=== PATIENT | female | born 1945 | race Caucasian/White ===

== ENCOUNTER 2017-06-03 16:11 | Outpatient (CLI) | payer MEDICARE | END 2017-06-03 16:12 | disposition home or self-care (01) | LOC: BICRAD 16:11 | PROVIDERS: ATTEND Internal Medicine | DX: J40 Bronchitis, not specified as acute or chronic (principal) | CPT/HCPCS: 71046 ==

== ENCOUNTER 2017-06-15 16:20 | Emergency (ER) | payer MEDICARE ==
[2017-06-15 17:34] LABS: #Basophils 0.1 thou/uL (0.0-0.2); #Eosinphils 0.3 thou/uL (0.0-0.7); #Lymphocytes 2.9 thou/uL (1.20-3.40); #Monocytes 1.5 thou/uL (0.11-0.59); #Neutrophils 12.8 thou/uL (1.40-6.50); %Basophils 0.7 % (0.0-1.0); %Eosinophils 1.5 % (0.0-10.0); %Lymphocytes 16.3 % (21.0-51.0); %Monocytes 8.5 % (0.0-10.0); Mean Corpuscular HGB CONC 31.3 g/dL (32.0-36.0); Mean Corpuscular Hemoglobin 30.4 pg (27.0-31.0); Mean Corpuscular Volume 97.1 fl (81.0-99.0); Mean Platelet Volume 7.6 fL (7.4-10.4); Platelet Count 245 thou/uL (130-400); RBC Distribution Width 12.4 % (11.5-14.5); Red Blood Cell (RBC) Count 4.94 mill/uL (4.20-5.40); White Blood Cell (WBC) Count 17.5 thou/uL (4.8-10.8)
[2017-06-15 17:49] LABS: ALT (SGPT) 12 U/L (8-55); AST (SGOT) 16 U/L (5-34); Albumin 4.1 g/dL (3.4-4.8); Alkaline Phosphatase 48 U/L (40-150); Anion Gap 12 mmol/L (10-20); BUN (Urea Nitrogen) 15 mg/dL (9.8-20.1); Bilirubin, Total 0.7 mg/dL (0.2-1.2); Calc. Creatinine Clearance 0 mL/min (70-130); Calcium 9.3 mg/dL (7.8-10.44); Carbon Dioxide 30 mmol/L (23-31); Chloride 98 mmol/L (98-107); Estimated GFR-MDRD 72; Glucose 130 mg/dL (80-115); Protein, Total 7.1 g/dL (6.0-8.3); Sodium 137 mmol/L (136-145)
[2017-06-15 17:52] LABS: Troponin I Less than 0.010 ng/mL (< 0.028)
--- NOTE | 2017-06-15 17:52 | CT ---
EXAM: NONCONTRAST HEAD CT 06/15/17 HISTORY: Trauma. Patient was getting up and had loss of consciousness. Syncopal episode. COMPARISON: None. TECHNIQUE: Noncontrast head CT is performed from skull base to skull vertex. FINDINGS: No parenchymal hemorrhage. No extra-axial hematoma. No midline shift. Basilar cisterns are patent. Br ain volume, age appropriate. Cortical nicolas-white matter differentiation is preserved. Ventricles and sulci are patent and symmetric. The calvarium is intact. Adequate aeration of the sinuses and mastoid air cells. There is a posterior left scalp laceration and hematoma. IMPRESSION: 1. No intracranial posttraumatic sequela. 2. Left scalp injury with laceration and hematoma. POS: [facility]
[2017-06-15 17:54] LABS: Potassium 2.9 mmol/L (3.5-5.1)
[2017-06-15 17:55] LABS: CKMB 9.8 ng/mL (0-6.6)
== END 2017-06-15 18:05 | disposition home or self-care (01) ==
LOC: ERS 16:20
DX: S01.01XA Laceration without foreign body of scalp, initial encounter (principal); R55 Syncope and collapse; E87.6 Hypokalemia; E78.5 Hyperlipidemia, unspecified; I10 Essential (primary) hypertension; Z79.899 Other long term (current) drug therapy; Z79.82 Long term (current) use of aspirin; W01.198A Fall on same level from slipping, tripping and stumbling with subsequent striking against other object, initial encounter; Y92.89 Other specified places as the place of occurrence of the external cause
CPT/HCPCS: 12002; 70450; 80053; 82553; 84484; 85025; 93005

== ENCOUNTER 2018-01-18 15:48 | Inpatient (IN) | payer MEDICARE ==
[2018-01-18 16:29] VITALS: BMI 27.0
[2018-01-18] MEDS ORDERED: Diltiazem 125 MG in Sodium Chloride 0.9% 100 ML IVPB SCH (20:00)
[2018-01-18] MEDS ORDERED: Enoxaparin Sodium 80 MG/0.8 ML SYRINGE SC SCH (20:00)
[2018-01-18] MEDS: Atorvastatin Calcium 10 MG TAB PO SCH (20:31)
--- NOTE | 2018-01-18 21:37 | RAD ---
AP VIEW CHEST: 01/18/18 HISTORY: Shortness of breath. Atrial fibrillation. AP view chest is obtained on 01/18/18. Comparison made to previous exam of 03/09/13. AP view chest demonstrates mild pulmonary vascular congestion. There is some blunting of the right and left costophrenic angles compatible with small bilateral pleu ral effusions. No evidence of pneumonia seen. IMPRESSION: Pulmonary vascular congestion and small bilateral pleural effusions. POS: [facility]
--- NOTE | 2018-01-19 04:10 | HP ---
CHIEF COMPLAINT: Dyspnea on exertion. HISTORY OF PRESENT ILLNESS: This patient is a 72-year-old female, who is generally in good health un til she was recently diagnosed with Graves' disease by her PCP, Dr. Collado. She has been referred to a specialist in [place], but that is a couple of weeks away. The patient stated that Wednesday she we nt to the [employer] football game and when trying to ascend the stairs at the stadium she became very s hort of breath. Since that time, she has persistently been short of breath with exertion. She denie s any chest pains, palpitations or shortness of breath at rest and it is really only with exertion. She presented to her PCP's office with those symptoms today. Dr. Collado performed an EKG and found he r to be in atrial fibrillation, subsequently called for direct admission and spoke with Dr. Hussein. Currently, the patient feels at her baseline. REVIEW OF SYSTEMS: Only notable for the fact that she tends to trend toward constipation. Otherwise , 10-system review is negative. PAST MEDICAL HISTORY: Hyperlipidemia, hypertension, recently diagnosed Graves' disease. She did hav e an elevated JULIA in the past, but no other diagnosis was made. PAST SURGICAL HISTORY: Cholecystectomy, tonsillectomy, bilateral tubal ligation. SOCIAL HISTORY: The patient typically has about one glass of wine per day. She is a nonsmoker, nond rug user. She is . Her would be her surrogate decision maker and she is F[employer]. FAMILY HISTORY: Both parents in their 90s. She believes her father likely had some heart issue s, but was not formally diagnosed. CURRENT MEDICATIONS: Multivitamin ICaps 1 q. day, Lipitor 10 mg at bedtime, aspirin 325 q. day, poly ethylene glycol 119 grams p.o. q. day. ALLERGIES: None. PHYSICAL EXAMINATION: VITAL SIGNS: Pulse is ranging from 80s-170s, temperature is 97.7, pulse 74, respirations 16, O2 sat 98% on room air, blood pressure is 152/72. GENERAL APPEARANCE: Age appropriate female. She is awake, alert, oriented, pleasant, and cooperativ e. She is in no distress. HEENT: PERRL. No OP lesions. NECK: Supple and symmetric. CARDIOVASCULAR: Heart is irregularly irregular with tachycardia. LUNGS: Clear to auscultation bilaterally with good chest wall expansion and air exchange. No wheeze s or rales. ABDOMEN: Soft, nontender, nondistended, positive bowel sounds. No masses, no organomegaly. EXTREMITIES: Warm and dry with no cyanosis, clubbing or edema. LABORATORY DATA: No labs presently. The patient reports that all of her other lab work performed by Dr. Collado was normal other than her thyroid studies. IMPRESSION AND PLAN: 1. New onset atrial fibrillation. Currently, the patient has rapid ventricular response with variab le rate, currently 101-150, it was as low as 80s, seem to have increased when she tried to get up and go to the bathroom. Keeping her on telemetry and observation, going to go ahead and give her a dose of IV Cardizem bolus at 20 mg and start a drip at 5 an hour to get some better rate control. Order some labs for the morning, get echocardiogram and consult Cardiology. Concern that her Graves' disea se and some degree of hyperthyroidism might be driving the atrial fibrillation and the tachycardia. I will give her a single dose of therapeutic Lovenox tonight. We will determine whether she needs to be on continued anticoagulation in the morning, it is not impossible. Cardiology might want to cons ider a PALOMA and possible cardioversion given the relatively new onset of the symptoms that may be miti gated by the fact that she may have some underlying hyperthyroidism. 2. History of hyperlipidemia. Continue with her atorvastatin. 3. Graves' disease. The patient was recently diagnosed. We will go ahead and order a thyroid panel as from the morning, so we can only see what levels are dealing with.
[2018-01-19 04:41] LABS: #Basophils 0.1 thou/uL (0.0-0.2); #Eosinphils 0.2 thou/uL (0.0-0.7); #Lymphocytes 1.7 thou/uL (1.20-3.40); #Monocytes 0.9 thou/uL (0.11-0.59); #Neutrophils 5.8 thou/uL (1.40-6.50); %Basophils 0.9 % (0.0-1.0); %Eosinophils 1.8 % (0.0-10.0); %Lymphocytes 19.7 % (21.0-51.0); %Monocytes 10.8 % (0.0-10.0); %Neutrophils 66.8 % (42.0-75.0); Mean Corpuscular Hemoglobin 29.5 pg (27.0-31.0); Mean Corpuscular Volume 92.2 fL (78.0-98.0); Mean Platelet Volume 9.9 fL (7.4-10.4); Platelet Count 129 thou/uL (130-400); RBC Distribution Width 11.8 % (11.5-14.5); White Blood Cell (WBC) Count 8.7 thou/uL (4.8-10.8)
[2018-01-19 05:16] LABS: Anion Gap 13 mmol/L (10-20); BUN (Urea Nitrogen) 11 mg/dL (9.8-20.1); Calc. Creatinine Clearance 111 mL/min (70-130); Calcium 9.1 mg/dL (7.8-10.44); Carbon Dioxide 24 mmol/L (23-31); Chloride 108 mmol/L (98-107); Estimated GFR-MDRD Greater than 90; Glucose 125 mg/dL (83-110); Potassium 3.3 mmol/L (3.5-5.1); Sodium 142 mmol/L (136-145)
[2018-01-19] MEDS: Vit A,C & E/Lutein/Minerals Tablet PO SCH (08:03)
[2018-01-19] MEDS ORDERED: Polyethylene Glycol 3350 17 GM Packet PO SCH (09:00)
[2018-01-19] MEDS ORDERED: Aspirin 325 mg Enteric Coated Tablet PO SCH (09:00)
[2018-01-19] MEDS: Meloxicam 7.5 MG TAB PO SCH (09:57)
[2018-01-19] MEDS: Polyethylene Glycol 3350 17 GM Packet PO SCH (09:57)
[2018-01-19] MEDS ORDERED: Potassium Chloride 20 MEQ TAB PO SCH (10:15)
--- NOTE | 2018-01-19 10:33 | PDOC.PN ---
- Subjective Encounter Start Date: 01/19/18 Encounter Start Time: 10:31 Doing well. Feels a little better. - Objective Resuscitation Status: Resuscitation Status FULL:Full Resuscitation Vital Signs & Weight: Vital Signs (12 hours) Temp Pulse Resp BP Pulse Ox 01/19/18 07:52 98.6 F 93 16 178/98 H 95 01/19/18 04:00 98.0 F 93 18 171/87 H 93 L 01/19/18 00:00 98.8 F 102 H 19 113/63 93 L Weight Weight 183 lb Result Diagrams: 01/19/18 03:22 01/19/18 03:22 Phys Exam - Physical Examination Constitutional: NAD Respiratory: no wheezing, no rales, no rhonchi, clear to auscultation bilateral Cardiovascular: no significant murmur, no rub, irregular Gastrointestinal: soft, non-tender, no distention, positive bowel sounds Musculoskeletal: no edema Psychiatric: normal affect, A&O x 3 Dx/Plan (1) Atrial fibrillation with rapid ventricular response Code(s): I48.91 - UNSPECIFIED ATRIAL FIBRILLATION Status: Acute Comment: On Cardizem gtt. Rate much improved. Cards consult pending. Echo pending. Had on dose of Lovenox last night. Slightly low platelets. Await labs from [facility] before additional doses. (2) Graves disease Code(s): E05.00 - THYROTOXICOSIS W DIFFUSE GOITER W/O THYROTOXIC CRISIS Status : Acute Comment: Getting lab results from [facility]. (3) Hyperlipidemia Code(s): E78.5 - HYPERLIPIDEMIA, UNSPECIFIED Status: Acute Comment: Continue lipitor. - Plan * above.
[2018-01-19] MEDS: Diltiazem 125 MG in Sodium Chloride 0.9% 100 ML IVPB SCH ×2 (11:53→23:48)
[2018-01-19] MEDS ORDERED: Metoprolol Tartrate 25 MG TAB PO SCH (14:45)
[2018-01-19] MEDS ORDERED: Rivaroxaban 15 MG TAB PO SCH (14:45)
[2018-01-19] MEDS: Acetaminophen 325 MG TAB PO PRN (17:26)
[2018-01-19] MEDS: Metoprolol Tartrate 50 MG TAB PO SCH (20:50)
[2018-01-19] MEDS: Atorvastatin Calcium 10 MG TAB PO SCH (20:50)
--- NOTE | 2018-01-19 22:08 | CON ---
DATE OF CONSULTATION: 01/19/2018 HISTORY OF PRESENT ILLNESS: Corrie Arthur is a 72-year-old white female that I have known socially for many years. She has never had any previous cardiac problems. She recently has been having problems with increasing fatigue and tiredness and on 12/20/2017, had a TSH by Dr. Collado, that was less than 0.010, whereas before it apparently was normal. She had a free T3 of 12.0, free T4 of 3.83. Thyroid peroxidase and thyroglobulin antibody were both extremely elevated. An appointment was made to have her seen by an dough raiser in [place], which apparently is not until the of this month. Approximately 1 week ago, her began to notice that at night she would seem to be breathing very hard. On Wednesday while at the football game, she became increasingly dyspneic walking up and down the steps. She has never had this before. Ultimately, she went to see Dr. Collado yesterday on 01/18/2018. She was found to be in atrial fibrillation with fast ventricular response and was sent to the emergency room to be admitted. She does complain of exertional dyspnea, but denies any chest, arm, neck, or jaw discomfort. She denies any palpitations. She has never had arrhythmia problems or cardiac problems in the past. She has noticed some heat as well as cold intolerance, but denies any tremor or diarrhea. PAST MEDICAL HISTORY: Hypercholesterolemia, hypertension. Recently diagnosed with Graves' disease. She also has history of an elevated JULIA. OPERATIONS: Cholecystectomy, tonsillectomy, bilateral tubal ligation. MEDICATIONS: Aspirin 325 daily, atorvastatin 10 at bedtime, Mobic 7.5 daily, Icaps, Protonix 40 b.i.d., MiraLax 17 grams daily. ALLERGIES: None. SOCIAL HISTORY: She does not smoke. She drinks a glass of wine per day. FAMILY HISTORY: Father had bypass surgery. REVIEW OF SYSTEMS: Twelve-point review of systems is otherwise unremarkable. PHYSICAL EXAMINATION: VITAL SIGNS: blood pressure 178/98, pulse of 100 and irregularly irregular. HEENT: PERRL. NECK: Supple. CHEST: Clear. CARDIAC: S1, S2 normal, without any S3, S4 or murmurs. Carotid upstrokes normal, without bruits. ABDOMEN: Normal bowel sounds, without tenderness, organomegaly. EXTREMITIES: Revealed no clubbing, cyanosis or edema. NEUROLOGIC: Grossly intact. SKIN: Warm and dry. LABORATORY DATA: I do not see an EKG on the chart. At times, her heart rate is up to 190 per minute on telemetry. Thyroid blood test as noted above. CBC is normal with hemoglobin of 13.0, hematocrit of 40.5. Sodium 142, potassium is 3.3, chloride 108, carbon dioxide 24, BUN 11, creatinine 0.61. IMPRESSION: 1. New-onset atrial fibrillation, probably 6 or 7 days ago. This certainly appears to be due to her hyperthyroidism. 2. Hyperthyroidism, probable Graves' disease. 3. Hyperlipidemia. 4. History of hypertension. PLAN: The patient will be started on anticoagulation with Xarelto. She does not have known coronary artery disease and so her aspirin will be discontinued. She will be started on p.o. metoprolol for better rate control with the atrial fibrillation. Consideration may also need to be given to addition of methimazole. Eventually, consideration needs to be given to restoring normal sinus rhythm; however, until her hyperthyroidism is adequately treated, she has very high chance of recurrence, and I will wait to address that once her hyperthyroidism has been corrected in the future. ALVARO
[2018-01-20] MEDS: Rivaroxaban 10 MG TAB PO SCH (08:30)
[2018-01-20] MEDS: Meloxicam 7.5 MG TAB PO SCH (08:30)
[2018-01-20] MEDS: Polyethylene Glycol 3350 17 GM Packet PO SCH (08:31)
[2018-01-20] MEDS: Metoprolol Tartrate 50 MG TAB PO SCH ×2 (08:31→21:34)
[2018-01-20] MEDS: Vit A,C & E/Lutein/Minerals Tablet PO SCH (08:31)
[2018-01-20] MEDS ORDERED: Diltiazem 125 MG in Sodium Chloride 0.9% 100 ML IVPB SCH (09:23)
[2018-01-20] MEDS ORDERED: Metoprolol Tartrate 25 MG TAB PO SCH (11:00)
[2018-01-20] MEDS: Acetaminophen 325 MG TAB PO PRN (11:45)
[2018-01-20] MEDS: Atorvastatin Calcium 10 MG TAB PO SCH (21:37)
[2018-01-21 06:10] LABS: Anion Gap 12 mmol/L (10-20); BUN (Urea Nitrogen) 13 mg/dL (9.8-20.1); Calc. Creatinine Clearance 107 mL/min (70-130); Calcium 8.9 mg/dL (7.8-10.44); Carbon Dioxide 21 mmol/L (23-31); Cardiac Risk 3.8 (Less than 4.5); Chloride 108 mmol/L (98-107); Cholesterol 115 mg/dl (< 200 Desired); Estimated GFR-MDRD Greater than 90; Glucose 118 mg/dL (83-110); HDL Cholesterol 30 mg/dL (>60 Neg Risk); LDL Cholesterol, Calculated 74 mg/dL; Potassium 3.9 mmol/L (3.5-5.1); Sodium 137 mmol/L (136-145); Triglycerides 55 mg/dL (Less than 150)
[2018-01-21 08:00] VITALS: BP 133/77; TEMP 97.7
[2018-01-21] MEDS: Polyethylene Glycol 3350 17 GM Packet PO SCH (08:20)
[2018-01-21] MEDS: Vit A,C & E/Lutein/Minerals Tablet PO SCH (08:21)
[2018-01-21] MEDS: Rivaroxaban 10 MG TAB PO SCH (08:21)
[2018-01-21] MEDS: Meloxicam 7.5 MG TAB PO SCH (08:21)
[2018-01-21] MEDS: Metoprolol Tartrate 50 MG TAB PO SCH (08:22)
[2018-01-21] MEDS ORDERED: Non-Formulary Item 1 EACH (Irbesartan [Irbesartan] 300 MG) PO SCH (09:00)
[2018-01-21] MEDS ORDERED: Metoprolol Tartrate 50 MG TAB PO SCH ×2 (09:00→21:00)
--- NOTE | 2018-01-21 09:45 | PRG ---
DATE OF SERVICE: 01/21/2018 SUBJECTIVE: Ms. Arthur is doing well, no complaints. No shortness of breath. No tightness. OBJECTIVE: VITAL SIGNS: Blood pressure 133/77, pulse is variable, mostly between 90-110. LUNGS: Clear. CARDIAC: Irregular, irregular. Heart rates are rapid even at rest. ABDOMEN: Soft, nontender. EXTREMITIES: No edema. ASSESSMENT: 1. Hyperthyroidism. 2. Atrial fibrillation, rates still at high even at rest. PLAN: 1. Increase metoprolol to 100 mg twice a day. 2. Stop meloxicam. 3. She is on Xarelto 20 mg a day. 4. She will follow up with Dr. Rizvi in 2 weeks. 5. She is also on irbesartan. Okay to be released home at this time. I would recommend reducing th e irbesartan to 150 mg a day since she is now on the beta blockers at higher dose.
[2018-01-21] MEDS ORDERED: Metoprolol Tartrate 25 MG TAB PO SCH (11:00)
--- NOTE | 2018-01-22 10:32 | EKG ---
Test Reason : Blood Pressure : / mmHG Vent. Rate : 102 BPM Atrial Rate : 107 BPM P-R Int : 000 ms QRS Dur : 088 ms QT Int : 436 ms P-R-T Axes : 000 079 077 degrees QTc Int : 568 ms Atrial fibrillation Abnormal ECG QT has lengthened Confirmed by DR. Khadijah SAUCEDA ([id number]) on 01/22/2018 10:32:17 AM Referred By: EDIL Confirmed By:DR. Khadijah SAUCEDA
--- NOTE | 2018-01-22 10:33 | EKG ---
Test Reason : REPEAT Blood Pressure : / mmHG Vent. Rate : 088 BPM Atrial Rate : 084 BPM P-R Int : 000 ms QRS Dur : 084 ms QT Int : 426 ms P-R-T Axes : 000 093 050 degrees QTc Int : 515 ms Atrial fibrillation with premature ventricular or aberrantly conducted complexes Rightward axis Prolonged QT Abnormal ECG Confirmed by DR. Khadijah SAUCEDA ([id number]) on 01/22/2018 10:32:39 AM Referred By: EDIL Confirmed By:DR. Khadijah SAUCEDA
--- NOTE | 2018-01-23 22:23 | DIS ---
DATE OF ADMISSION: 01/18/2018 DATE OF DISCHARGE: 01/21/2018 DISCHARGE DIAGNOSES: 1. Atrial fibrillation with rapid ventricular response. 2. Graves' disease. 3. Hyperlipidemia. 4. Hypertension. HISTORY: This patient is a 72-year-old female who presented to the hospital as a direct admission fr om Dr. Berhane Collado's office. The patient had recently been diagnosed with Graves' disease. She farris d appointment with rim turning machine operator in [place] later in the month. The patient reported some increasi ng dyspnea on exertion and shortness of breath. She presented to Dr. Collado's office. He performed a n EKG, which confirmed atrial fibrillation with rapid ventricular response. Patient was subsequently directly admitted. HOSPITAL COURSE: The patient was admitted to telemetry. Her initial telemetry did confirm atrial fi brillation with rapid ventricular response. Her labs were only notable for a potassium of 3.3, other heller were generally unremarkable. She had IV Cardizem drip initiated after a bolus to get better con trol of her rate. The patient did have some improvement through the night and was seen by Cardiology the following day. At that time, the patient was started on oral beta apoorva and long-acting antic oagulation with Xarelto. The following day, the patient's heart rate was still slightly elevated. S he had increase in the dosage of her beta apoorva and was felt to be stable for discharge the follow day. PHYSICAL EXAMINATION: VITAL SIGNS: On date of discharge, temperature is 97.7, pulse 74, respirations 16, O2 sat was 94%, b lood pressure was 133/77. HEART: Regular but good rate. LUNGS: Clear bilaterally. ABDOMEN: Benign. EXTREMITIES: Warm and dry. DISCHARGE INSTRUCTIONS: The patient is discharged to home with a heart-healthy diet. Her activity [employer] is as tolerated. DISCHARGE MEDICATIONS: She will be on irbesartan 150 mg every day for elevated blood pressure, metop rolol 100 mg b.i.d., Xarelto 20 mg every day. She will continue with her usual dose of Lipitor 10 mg at bedtime, MiraLax 17 grams daily, multivitamin 1 p.o. daily, pantoprazole 40 mg b.i.d. She is to follow up with Dr. Rizvi on 02/03 at 3:30 p.m. She should also follow up with Dr. Shira Collado. She can return to the emergency department should she have any problems prior to that time . Of note, the patient did have an echocardiogram while in the hospital, which revealed an ejection fraction of 50-55% with some severe tricuspid regurgitation, but no other valvular issues.
== END 2018-01-21 12:46 | disposition home or self-care (01) | DRG 310 ==
LOC: 2SE 15:48
PROVIDERS: ADMIT Internal Medicine Infectious Disease; ATTEND Internal Medicine Infectious Disease
DX: I48.91 Unspecified atrial fibrillation (principal); E05.00 Thyrotoxicosis with diffuse goiter without thyrotoxic crisis or storm; E78.5 Hyperlipidemia, unspecified; I10 Essential (primary) hypertension; Z79.899 Other long term (current) drug therapy; Z79.82 Long term (current) use of aspirin; Z79.1 Long term (current) use of non-steroidal anti-inflammatories (NSAID); E03.9 Hypothyroidism, unspecified
CPT/HCPCS: 36415; 71045; 80048; 80061; 85025; 93005; 93010; 93306; J1650; J7050

== ENCOUNTER 2018-07-01 07:23 | Outpatient (CLI) | payer MEDICARE ==
[2018-07-01 07:47] LABS: Estimated GFR-MDRD - POC Greater than 90
--- NOTE | 2018-07-01 08:32 | MRI ---
Exam: Brain MRI with and without contrast HISTORY: Memory disorder. Memory problems. COMPARISON: None FINDINGS: Gradient echo sequence: No hemorrhage Calvarium: Appropriate T1 marrow signal intensity Midline brain parenchyma: Unremarkable Cerebrum:No parenchymal mass, mass effect or midline shift. Brain volume, age-appropriate. Cortical g ray-white matter differentiation is preserved. T2 and FLAIR white matter hyperintensities likely due to chronic small vessel ischemic change. Ventricles: No evidence of hydrocephalus. Sinuses and mastoid air cells: Adequate aeration Diffusion: Central arterial flow is maintained. Absent restricted diffusion. Postcontrast images: No pathologic enhancement of the brain parenchyma. IMPRESSION: Absent restricted diffusion. No acute infarct. No pathologic enhancement the brain parenchyma. Brain volume, age-appropriate. Minimal chronic small vessel ischemic changes of the white matter.
== END 2018-07-01 07:24 | disposition home or self-care (01) ==
LOC: SCSMRI 07:23
PROVIDERS: ATTEND Psychiatry & Neurology Neurology
DX: R41.3 Other amnesia (principal); E55.9 Vitamin D deficiency, unspecified; E16.2 Hypoglycemia, unspecified; E46 Unspecified protein-calorie malnutrition
CPT/HCPCS: 70553; 82565

== ENCOUNTER → 2019-04-27 | Day surgery (SDC) | payer MEDICARE ==
--- NOTE | 2019-04-27 08:37 | MMO ---
EXAM: MAMMO Brst Bx Stereo left breast Left breast biopsy marker clip placement. PROVIDED CLINICAL HISTORY: Increased number of microcalcifications seen involving a cluster of microcalcifications in the upper outer left breast. Biopsy was recommended. COMPARISON: Mammograms on 04/21/2019. TECHNIQUE: The procedure including the risks and complications were explained to the patient, and informed conse nt was obtained. The patient was placed on the stereotactic guided breast biopsy table in the prone position. Calcifications in the upper outer left breast were localized utilizing stereotactic imaging . The skin and subcutaneous tissues were infiltrated with buffered 1% lidocaine with epinephrine for local anesthesia. A small skin incision was made. A 10-gauge biopsy needle was advanced into the left breast. Stereotactic images were performed demonstrating calcifications at the tip of the needle. The needle was then further advanced, and positioning was again confirmed with stereotactic i mages. A total of [id number] core needle biopsy specimens were obtained. A specimen mammogram was performed which demonstrated multiple microcalcifications within the specimen. As a result, a biopsy marker clip was deployed at site of biopsy. Stereotactic images were performed demonstrating deployment of t he biopsy marker clip. Hemostasis was achieved with direct pressure. A dry sterile dressing was placed. The patient tolerate d the procedure well and without immediate complication. Mammographic images of the left breast were then performed. IMPRESSION: 1. Grouping of microcalcifications in the upper outer left breast. 2. Technically successful stereotactic guided breast biopsy left breast microcalcifications. 3. Specimen mammogram demonstrates microcalcifications in the specimen. 4. Technically successful biopsy marker clip deployment at site of biopsy.
--- NOTE | 2019-04-27 08:39 | MMO ---
EXAM: MAMMO Surgial Specimen PROVIDED CLINICAL HISTORY: Microcalcifications upper left breast. Patient is post stereotactic guided breast biopsy. COMPARISON: Mammograms on 04/21/2019 and stereotactic guided breast biopsy obtained on this date. FINDINGS: Specimen mammogram demonstrates several core biopsy samples. Multiple microcalcifications are seen wi thin the provided specimen. IMPRESSION: Microcalcifications present in the provided specimen mammogram.
--- NOTE | 2019-04-27 08:47 | MMO ---
EXAM: MAMMO Unilat Diag DDI LT PROVIDED CLINICAL HISTORY: Grouping of microcalcifications upper outer left breast. Patient is post stereotactic guided biopsy o f the left breast microcalcifications with biopsy marker clip placement. COMPARISON: Mammograms on 04/21/2019 FINDINGS: CC and mediolateral view left breast demonstrate biopsy marker clip in the upper outer left breast at site of previously noted grouping of microcalcifications. There has been interval decrease in number of microcalcifications compared to the prior study related to interval biopsy. Gas is seen at site of recent biopsy. IMPRESSION: Postbiopsy mammogram demonstrating biopsy marker clip at site of biopsy which is in region of previou sly seen microcalcifications.
== END ==
LOC: MAMMO 06:54
PROC: 0H9U3ZX Drainage of Left Breast, Percutaneous Approach, Diagnostic (ICD-10-PCS; principal; 2019-04-27)
DX: N60.12 Diffuse cystic mastopathy of left breast (principal); R92.0 Mammographic microcalcification found on diagnostic imaging of breast
CPT/HCPCS: 19081; 76098; 88305

== ENCOUNTER 2020-08-28 08:48 | Outpatient (CLI) | payer MEDICARE | END 2020-08-28 08:49 | disposition home or self-care (01) | LOC: BICMAMMO 08:48 | PROVIDERS: ATTEND Obstetrics & Gynecology | DX: Z12.31 Encounter for screening mammogram for malignant neoplasm of breast (principal); Z91.89 Other specified personal risk factors, not elsewhere classified | CPT/HCPCS: 77063; 77067 ==

== ENCOUNTER 2021-09-26 10:26 | Outpatient (CLI) | payer MEDICARE | END 2021-09-26 10:27 | disposition home or self-care (01) | LOC: BICMAMMO 10:26 | PROVIDERS: ATTEND Internal Medicine | DX: Z12.31 Encounter for screening mammogram for malignant neoplasm of breast (principal); Z91.89 Other specified personal risk factors, not elsewhere classified | CPT/HCPCS: 77063; 77067 ==

== ENCOUNTER 2022-05-28 15:16 | Emergency (ER) | payer MEDICARE ==
[2022-05-28] MEDS ORDERED: Morphine 2 MG/ML VIAL ONE (16:10)
[2022-05-28] MEDS ORDERED: Ondansetron PF 4 MG/2 ML Vial ONE (16:10)
[2022-05-28 16:27] LABS: ALT (SGPT) 13 U/L (8-55); AST (SGOT) 20 U/L (5-34); Albumin 3.7 g/dL (3.4-4.8); Alkaline Phosphatase 62 U/L (40-110); Anion Gap 14 mmol/L (10-20); BUN (Urea Nitrogen) 16 mg/dL (9.8-20.1); Bilirubin, Total 0.9 mg/dL (0.2-1.2); CK (CPK) 23 U/L (29-168); Calc. Creatinine Clearance 0 mL/min (70-130); Calcium 8.8 mg/dL (7.8-10.44); Carbon Dioxide 24 mmol/L (23-31); Chloride 106 mmol/L (98-107); Estimated GFR 71; Globulin 2.8 g/dL (2.4-3.5); Glucose 170 mg/dL (83-110); Lipase 13 U/L (8-78); Potassium 4.1 mmol/L (3.5-5.1); Protein, Total 6.5 g/dL (5.8-8.1); Sodium 140 mmol/L (136-145)
[2022-05-28 16:51] LABS: #Lymphocytes 0.2 thou/uL (1.20-3.40); #Monocytes 0.4 thou/uL (0.11-0.59); #Neutrophils 11.5 thou/uL (1.40-6.50); %Basophils 0.3 % (0.0-1.0); %Lymphocytes 1.9 % (21.0-51.0); %Monocytes 3.1 % (0.0-10.0); %Neutrophils 94.6 % (42.0-75.0); Hemoglobin 14.7 g/dL (12.0-16.0); Mean Corpuscular HGB CONC 33.1 g/dL (32.0-36.0); Mean Corpuscular Hemoglobin 31.9 pg (27.0-31.0); Mean Corpuscular Volume 96.4 fl (78.0-98.0); Platelet Count 118 10x3/uL (130-400); Platelet Morphology Comment Appears Decreased; RBC Distribution Width 11.8 % (11.5-14.5); RBC Morphology Normal; Red Blood Cell (RBC) Count 4.62 mill/uL (4.20-5.40); White Blood Cell (WBC) Count 12.1 10x3/uL (4.8-10.8)
== END 2022-05-28 19:00 | disposition home or self-care (01) ==
LOC: ERS 15:16
DX: R11.2 Nausea with vomiting, unspecified (principal); R19.7 Diarrhea, unspecified; D72.829 Elevated white blood cell count, unspecified; E78.5 Hyperlipidemia, unspecified; I10 Essential (primary) hypertension
CPT/HCPCS: 36415; 74177; 80053; 82550; 83690; 85025; 93005; 94760; 96374; 96375; J2272; J2405

== ENCOUNTER 2023-02-05 09:32 | Outpatient (CLI) | payer MEDICARE | END 2023-02-05 09:33 | disposition home or self-care (01) | LOC: BICMAMMO 09:32 | PROVIDERS: ATTEND Internal Medicine | DX: Z12.31 Encounter for screening mammogram for malignant neoplasm of breast (principal); Z91.89 Other specified personal risk factors, not elsewhere classified | CPT/HCPCS: 77063; 77067 ==

== ENCOUNTER 2023-04-13 11:43 | Inpatient (IN) | payer MEDICARE ==
[2023-04-13 12:32] LABS: #Basophils 0.1 thou/uL (0.0-0.2); #Eosinphils 0.2 thou/uL (0.0-0.7); #Monocytes 0.9 thou/uL (0.11-0.59); #Neutrophils 7.4 thou/uL (1.40-6.50); %Basophils 0.6 % (0.0-1.0); %Eosinophils 2.4 % (0.0-10.0); %Lymphocytes 11.2 % (21.0-51.0); %Monocytes 8.8 % (0.0-10.0); %Neutrophils 76.7 % (42.0-75.0); Hematocrit 43.9 % (36.0-47.0); Mean Corpuscular HGB CONC 31.9 g/dL (32.0-36.0); Mean Corpuscular Hemoglobin 30.2 pg (27.0-31.0); Mean Corpuscular Volume 94.8 fl (78.0-98.0); Mean Platelet Volume 10.7 fL (7.4-10.4); Platelet Count 201 10x3/uL (130-400); RBC Distribution Width 12.1 % (11.5-14.5); Red Blood Cell (RBC) Count 4.63 mill/uL (4.20-5.40); White Blood Cell (WBC) Count 9.6 10x3/uL (4.8-10.8)
[2023-04-13 12:46] LABS: INR-International Normal Ratio 1.5; PTT 30.3 sec (22.9-36.1); Prothrombin Time 18.2 sec (12.0-14.7)
[2023-04-13 13:08] LABS: ALT (SGPT) Less than 7 U/L (8-55); AST (SGOT) 18 U/L (5-34); Albumin 3.5 g/dL (3.4-4.8); Alkaline Phosphatase 57 U/L (40-110); Anion Gap 13 mmol/L (10-20); BUN (Urea Nitrogen) 10 mg/dL (9.8-20.1); Bilirubin, Total 0.9 mg/dL (0.2-1.2); Calc. Creatinine Clearance 0 mL/min (70-130); Calcium 8.6 mg/dL (7.8-10.44); Carbon Dioxide 20 mmol/L (23-31); Chloride 106 mmol/L (98-107); Estimated GFR 75; Globulin 3.5 g/dL (2.4-3.5); Glucose 125 mg/dL (83-110); Potassium 4.3 mmol/L (3.5-5.1); Sodium 135 mmol/L (136-145)
[2023-04-13 13:13] LABS: Troponin I Less than 0.010 ng/mL (< 0.028)
[2023-04-13] MEDS ORDERED: Boostrix 0.5 ML (Tdap) VIAL (>/=7 yrs of age) ONE (13:46)
[2023-04-13 13:55] LABS: Bacteria/HPF 4+ HPF (None Seen); Bilirubin Negative (Negative); Blood, Urine 1+ (Negative); CAUTI Indications for Culture Alt mental st,lethar; Clarity Turbid (Clear); Glucose, Urine (Dipstick) Normal (Negative); Ketone, Urine Negative (Negative); Leukocyte 500 Leu/uL (Negative); Nitrite 2+ (Negative); Protein, Urine (Dipstick) 20 mg/dL (Neg-Trace); RBC/HPF 0-3 HPF (0-3); Specific Gravity, Urine 1.017 (1.002-1.036); Urobilinogen 3 mg/dL (Less than 2); WBC/HPF 21-50 HPF (0-3)
[2023-04-13 13:56] LABS: Urine Culture Reflex Yes Yes
[2023-04-13] MEDS ORDERED: Senokot S 8.6-50 MG TAB PO PRN (14:17)
[2023-04-13 16:26] LABS: Troponin I Less than 0.010 ng/mL (< 0.028)
[2023-04-13] MEDS ORDERED: Sodium Chloride 0.9% 100 ML ONE (16:33)
[2023-04-13] MEDS ORDERED: cefTRIAXone (ROCEPHIN) 1 GM VIAL ONE (16:33)
[2023-04-13 16:40] LABS: Free T4 (Free Thyroxine) 1.07 ng/dL (0.70-1.48); Thyroid Stimulating Hormone 1.4618 uIU/mL (0.35-4.94)
[2023-04-13 19:14] VITALS: BMI 28.8
[2023-04-13] MEDS: Atorvastatin Calcium 10 MG TAB PO SCH (20:00)
[2023-04-13] MEDS: cefTRIAXone\\ROCEPHIN 1 GM in Sodium Chloride 0.9% 100 ML IVPB SCH (20:00)
[2023-04-13] MEDS: Famotidine 20 MG TAB PO SCH (20:02)
[2023-04-13 20:42] LABS: Troponin I Less than 0.010 ng/mL (< 0.028)
[2023-04-13] MEDS: Losartan 25 MG TAB PO SCH (23:02)
[2023-04-14] MEDS: hydrALAZINE 20 MG/ML VIAL SLOW IVP SCH (01:57)
[2023-04-14 06:09] LABS: ALT (SGPT) 7 U/L (8-55); AST (SGOT) 14 U/L (5-34); Albumin 3.7 g/dL (3.4-4.8); Alkaline Phosphatase 62 U/L (40-110); Anion Gap 14 mmol/L (10-20); BUN (Urea Nitrogen) 9 mg/dL (9.8-20.1); Bilirubin, Total 0.7 mg/dL (0.2-1.2); Calc. Creatinine Clearance 87 mL/min (70-130); Calcium 8.7 mg/dL (7.8-10.44); Carbon Dioxide 20 mmol/L (23-31); Cardiac Risk 2.9 (Less than 4.5); Chloride 108 mmol/L (98-107); Cholesterol 139 mg/dl (< 200 Desired); Estimated GFR 80; Globulin 3.3 g/dL (2.4-3.5); Glucose 136 mg/dL (83-110); HDL Cholesterol 48 mg/dL (>60 Neg Risk); LDL Cholesterol, Calculated 65 mg/dL; Potassium 3.6 mmol/L (3.5-5.1); Sodium 138 mmol/L (136-145); Triglycerides 131 mg/dL (Less than 150)
[2023-04-14] MEDS: Losartan 25 MG TAB PO SCH (08:09)
[2023-04-14] MEDS: Acetaminophen 325 MG TAB PO PRN (08:09)
[2023-04-14] MEDS: Rivaroxaban 10 MG TAB PO SCH (16:24)
[2023-04-14] MEDS: Cholecalciferol 1,000 UNITS (25 MCG) TAB PO SCH (20:26)
[2023-04-14] MEDS: Folic Acid 1 MG TAB PO SCH (20:26)
[2023-04-14] MEDS: Donepezil HCl 10 MG TAB PO SCH (20:26)
[2023-04-14] MEDS: Memantine 10 MG TAB PO SCH (20:26)
[2023-04-14] MEDS: hydrALAZINE 20 MG/ML VIAL SLOW IVP PRN (20:27)
[2023-04-14] MEDS: Amlodipine 10 MG TAB PO SCH (20:33)
[2023-04-14] MEDS ORDERED: Non-Formulary Item 1 EACH (Folic Acid [Folic Acid] 0.8 MG Capsule) PO SCH (21:00)
[2023-04-14] MEDS ORDERED: Non-Formulary Item 1 EACH (Cholecalciferol (Vitamin D3) [Vitamin D3] 50 MCG Capsule) PO SCH (21:00)
[2023-04-15] MEDS: ALPRAZolam 0.25 MG TAB PO SCH (02:02)
[2023-04-15 07:09] LABS: Anion Gap 12 mmol/L (10-20); BUN (Urea Nitrogen) 9 mg/dL (9.8-20.1); Calc. Creatinine Clearance 102 mL/min (70-130); Calcium 8.6 mg/dL (7.8-10.44); Carbon Dioxide 22 mmol/L (23-31); Chloride 109 mmol/L (98-107); Estimated GFR 91; Glucose 122 mg/dL (83-110); Magnesium 1.9 mg/dL (1.6-2.6); Potassium 3.6 mmol/L (3.5-5.1); Sodium 139 mmol/L (136-145)
[2023-04-15] MEDS ORDERED: Non-Formulary Item 1 EACH (Cyanocobalamin (Vitamin B-12) [Vitamin B-12] 1,000 MCG Capsule PO SCH (09:00)
[2023-04-15] MEDS: Cyanocobalamin (Vitamin B-12) 1,000 MCG TAB PO SCH (09:23)
[2023-04-15] MEDS: Dronedarone HCl 400 MG TAB PO SCH ×2 (12:57→18:19)
[2023-04-15] MEDS: cefTRIAXone\\ROCEPHIN 1 GM in Sodium Chloride 0.9% 100 ML IVPB SCH (21:16)
[2023-04-16 12:08] VITALS: BP 139/70; TEMP 98.2
== END 2023-04-16 13:08 | disposition home or self-care (01) | DRG 690 ==
LOC: ERS 11:43 → ERHOLD 13:53 → 2SW 18:38 → OBSVTOIN 04-14 09:53
PROVIDERS: ADMIT Internal Medicine; ATTEND Emergency Medicine
DX: N30.01 Acute cystitis with hematuria (principal); I48.0 Paroxysmal atrial fibrillation; E78.5 Hyperlipidemia, unspecified; F03.90 Unspecified dementia, unspecified severity, without behavioral disturbance, psychotic disturbance, mood disturbance, and anxiety; R32 Unspecified urinary incontinence; E05.00 Thyrotoxicosis with diffuse goiter without thyrotoxic crisis or storm; S01.91XA Laceration without foreign body of unspecified part of head, initial encounter; I10 Essential (primary) hypertension; Z79.01 Long term (current) use of anticoagulants; Z79.899 Other long term (current) drug therapy; Z90.49 Acquired absence of other specified parts of digestive tract; Z98.51 Tubal ligation status; Z98.890 Other specified postprocedural states
CPT/HCPCS: 36415; 70450; 71045; 72125; 80048; 80053; 80061; 81001; 83735; 83880; 84439; 84443; 84480; 84484; 85025; 85610; 85730; 87086; 90471; 90715; 93005; 94760; 96365; 96375; 96376; G0378; G0390; J0360; J0696; J3490

== ENCOUNTER 2023-11-16 13:50 | Inpatient (IN) | payer MEDICARE ==
[~2023-11-16 13:50] MED LIST: Iopamidol 370 76% 100 ML VIAL ONE
[2023-11-16 14:43] LABS: #Basophils 0.05 10x3/uL (0.0-0.2); %Basophils 0.6 % (0.0-1.0); %Eosinophils 0.9 % (0.0-10.0); %Lymphocytes 10.2 % (21.0-51.0); %Monocytes 7.8 % (0.0-10.0); %Neutrophils 80.3 % (42.0-75.0); Hematocrit 37.9 % (36.0-47.0); Hemoglobin 12.2 g/dL (12.0-16.0); Mean Corpuscular HGB CONC 32.2 g/dL (32.0-36.0); Mean Corpuscular Hemoglobin 30.9 pg (27.0-31.0); Mean Corpuscular Volume 95.9 fL (78.0-98.0); Mean Platelet Volume 11.2 fL (7.4-10.4); Platelet Count 117 10x3/uL (130-400); RBC Distribution Width 12.6 % (11.5-14.5); Red Blood Cell (RBC) Count 3.95 mill/uL (4.20-5.40)
[2023-11-16 14:53] LABS: Prothrombin Time 22.4 sec (12.0-14.7)
[2023-11-16 14:54] LABS: PTT 47.2 sec (22.9-36.1)
[2023-11-16] MEDS ORDERED: Dextrose 10% in Water 250 ML ONE (14:55)
[2023-11-16 15:00] LABS: ALT (SGPT) 7 U/L (8-55); AST (SGOT) 12 U/L (5-34); Albumin 3.1 g/dL (3.4-4.8); Alkaline Phosphatase 61 U/L (40-110); Anion Gap 12 mmol/L (10-20); BUN (Urea Nitrogen) 13 mg/dL (9.8-20.1); Bilirubin, Total 1.1 mg/dL (0.2-1.2); Calc. Creatinine Clearance 0 mL/min (70-130); Carbon Dioxide 22 mmol/L (23-31); Chloride 109 mmol/L (98-107); Estimated GFR 73; Globulin 2.8 g/dL (2.4-3.5); Glucose 93 mg/dL (83-110); Magnesium 1.7 mg/dL (1.6-2.6); Potassium 3.8 mmol/L (3.5-5.1); Protein, Total 5.9 g/dL (5.8-8.1); Sodium 139 mmol/L (136-145)
[2023-11-16 15:03] LABS: Troponin I Less than 0.010 ng/mL (< 0.028)
[2023-11-16 15:07] LABS: Burr Cells SLIGHT = 2-5 cells HPF (0-1); Platelet Adequacy Comment Platelets Decreased
[2023-11-16] MEDS ORDERED: Bisacodyl 5 MG TAB PO PRN (16:45)
[2023-11-16] MEDS: Dronedarone HCl 400 MG TAB PO SCH (17:23)
[2023-11-16 17:52] VITALS: BMI 26.3
[2023-11-16] MEDS ORDERED: Dextrose 5% in Water 1,000 ML IV PRN (18:25)
[2023-11-16] MEDS ORDERED: Glucagon 1 MG/ML KIT IM PRN (18:25)
[2023-11-16] MEDS ORDERED: Dextrose 50% Abboject 50 ML SYRINGE SLOW IVP PRN (18:25)
[2023-11-16] MEDS: Cholecalciferol 1,000 UNITS (25 MCG) TAB PO SCH (20:31)
[2023-11-16] MEDS: Atorvastatin Calcium 10 MG TAB PO SCH (20:31)
[2023-11-17 05:17] LABS: #Basophils 0.03 10x3/uL (0.0-0.2); %Basophils 0.5 % (0.0-1.0); %Monocytes 14.2 % (0.0-10.0); %Neutrophils 68.1 % (42.0-75.0); Hematocrit 35.6 % (36.0-47.0); Hemoglobin 12.1 g/dL (12.0-16.0); Mean Corpuscular Hemoglobin 30.9 pg (27.0-31.0); Mean Platelet Volume 11.2 fL (7.4-10.4); Platelet Count 128 10x3/uL (130-400); RBC Distribution Width 12.8 % (11.5-14.5); Red Blood Cell (RBC) Count 3.91 mill/uL (4.20-5.40)
[2023-11-17 05:31] LABS: Anion Gap 12 mmol/L (10-20); BUN (Urea Nitrogen) 10 mg/dL (9.8-20.1); Calc. Creatinine Clearance 77 mL/min (70-130); Calcium 8.4 mg/dL (7.8-10.44); Carbon Dioxide 19 mmol/L (23-31); Cardiac Risk 2.6 (Less than 4.5); Chloride 110 mmol/L (98-107); Cholesterol 131 mg/dl (< 200 Desired); Estimated GFR 78; Glucose 104 mg/dL (83-110); HDL Cholesterol 51 mg/dL (>60 Neg Risk); LDL Cholesterol, Calculated 67 mg/dL; Potassium 3.4 mmol/L (3.5-5.1); Sodium 138 mmol/L (136-145); Triglycerides 64 mg/dL (Less than 150)
[2023-11-17] MEDS: Aspirin 81 mg Enteric Coated Tablet PO SCH (08:38)
[2023-11-17] MEDS: Cyanocobalamin (Vitamin B-12) 1,000 MCG TAB PO SCH (08:38)
[2023-11-17] MEDS ORDERED: Rivaroxaban 10 MG TAB PO SCH (09:00)
[2023-11-17] MEDS: Rivaroxaban 10 MG TAB PO SCH (17:18)
[2023-11-17] MEDS: Amlodipine 10 MG TAB PO SCH (18:31)
[2023-11-17] MEDS: Losartan 25 MG TAB PO SCH (18:31)
[2023-11-17] MEDS: Doxazosin 2 MG TAB PO SCH (20:21)
[2023-11-17] MEDS: Memantine 10 MG TAB PO SCH (20:21)
[2023-11-18] MEDS: Losartan 25 MG TAB PO SCH (08:10)
[2023-11-18] MEDS: Amlodipine 10 MG TAB PO SCH (08:10)
[2023-11-18] MEDS ORDERED: Losartan 25 MG TAB PO SCH (09:00)
[2023-11-19] MEDS ORDERED: Communication Order-Pharmacy FS SCH (08:24)
[2023-11-19] MEDS ORDERED: Enoxaparin 80 MG (0.8 mL) SYRINGE SC SCH (09:00)
[2023-11-19] MEDS: Enoxaparin 80 MG (0.8 mL) SYRINGE SC SCH (09:26)
[2023-11-19 09:27] LABS: Hematocrit 38.4 % (36.0-47.0); Hemoglobin 12.9 g/dL (12.0-16.0); Platelet Count 136 10x3/uL (130-400)
[2023-11-19] MEDS: Amiodarone 150 MG in Dextrose 5% in Water 100 ML IVPB SCH (09:28)
[2023-11-19] MEDS: Amiodarone 450 MG in Dextrose 5% in Water 250 ML IVPB SCH (09:29)
[2023-11-20] MEDS: Acetaminophen 325 MG TAB PO PRN (02:40)
[2023-11-20 05:29] LABS: #Basophils 0.05 10x3/uL (0.0-0.2); %Basophils 0.8 % (0.0-1.0); %Eosinophils 4.2 % (0.0-10.0); %Lymphocytes 28.8 % (21.0-51.0); %Monocytes 10.4 % (0.0-10.0); %Neutrophils 55.6 % (42.0-75.0); Hematocrit 36.9 % (36.0-47.0); Hemoglobin 12.4 g/dL (12.0-16.0); Mean Corpuscular HGB CONC 33.6 g/dL (32.0-36.0); Mean Corpuscular Hemoglobin 30.7 pg (27.0-31.0); Mean Corpuscular Volume 91.3 fL (78.0-98.0); Platelet Count 128 10x3/uL (130-400); RBC Distribution Width 12.6 % (11.5-14.5); Red Blood Cell (RBC) Count 4.04 mill/uL (4.20-5.40)
[2023-11-20 05:40] LABS: Anion Gap 12 mmol/L (10-20); BUN (Urea Nitrogen) 17 mg/dL (9.8-20.1); Calc. Creatinine Clearance 69 mL/min (70-130); Calcium 8.4 mg/dL (7.8-10.44); Carbon Dioxide 24 mmol/L (23-31); Chloride 106 mmol/L (98-107); Estimated GFR 69; Glucose 108 mg/dL (83-110); Sodium 139 mmol/L (136-145)
[2023-11-20] MEDS: Potassium Chloride 20 MEQ TAB PO SCH (21:09)
[2023-11-21 06:19] LABS: #Basophils 0.04 10x3/uL (0.0-0.2); %Basophils 0.6 % (0.0-1.0); %Eosinophils 4.2 % (0.0-10.0); %Lymphocytes 21.7 % (21.0-51.0); %Monocytes 9.7 % (0.0-10.0); %Neutrophils 63.4 % (42.0-75.0); Hematocrit 39.4 % (36.0-47.0); Mean Corpuscular Hemoglobin 30.2 pg (27.0-31.0); Mean Corpuscular Volume 91.4 fL (78.0-98.0); Mean Platelet Volume 11.2 fL (7.4-10.4); Platelet Count 135 10x3/uL (130-400); RBC Distribution Width 12.4 % (11.5-14.5); Red Blood Cell (RBC) Count 4.31 mill/uL (4.20-5.40)
[2023-11-21 06:35] LABS: Anion Gap 12 mmol/L (10-20); BUN (Urea Nitrogen) 15 mg/dL (9.8-20.1); Calc. Creatinine Clearance 65 mL/min (70-130); Calcium 8.7 mg/dL (7.8-10.44); Carbon Dioxide 21 mmol/L (23-31); Chloride 111 mmol/L (98-107); Estimated GFR 64; Glucose 120 mg/dL (83-110); Potassium 3.4 mmol/L (3.5-5.1); Sodium 141 mmol/L (136-145)
[2023-11-21] MEDS: Potassium Chloride 20 MEQ TAB PO SCH (12:06)
[2023-11-21] MEDS ORDERED: Glycerin Adult Supp. (12 ct jar) PR PRN (17:07)
[2023-11-21] MEDS ORDERED: Polyethylene Glycol 3350 17 GM Packet PO PRN (17:07)
[2023-11-21] MEDS: Polyethylene Glycol 3350 17 GM Packet PO SCH (17:26)
[2023-11-22 07:27] LABS: Hematocrit 39.9 % (36.0-47.0); Hemoglobin 13.6 g/dL (12.0-16.0); Platelet Count 134 10x3/uL (130-400)
[2023-11-22 07:28] LABS: #Basophils 0.05 10x3/uL (0.0-0.2); %Basophils 0.7 % (0.0-1.0); %Eosinophils 3.2 % (0.0-10.0); %Lymphocytes 20.7 % (21.0-51.0); %Neutrophils 65.3 % (42.0-75.0); Hematocrit 40.4 % (36.0-47.0); Hemoglobin 13.2 g/dL (12.0-16.0); Mean Corpuscular HGB CONC 32.7 g/dL (32.0-36.0); Mean Corpuscular Hemoglobin 30.5 pg (27.0-31.0); Mean Corpuscular Volume 93.3 fL (78.0-98.0); Platelet Count 134 10x3/uL (130-400); RBC Distribution Width 12.5 % (11.5-14.5); Red Blood Cell (RBC) Count 4.33 mill/uL (4.20-5.40)
[2023-11-22 07:39] LABS: Anion Gap 14 mmol/L (10-20); BUN (Urea Nitrogen) 14 mg/dL (9.8-20.1); Calc. Creatinine Clearance 68 mL/min (70-130); Calcium 8.6 mg/dL (7.8-10.44); Carbon Dioxide 19 mmol/L (23-31); Chloride 110 mmol/L (98-107); Estimated GFR 67; Glucose 114 mg/dL (83-110); Potassium 4.1 mmol/L (3.5-5.1); Sodium 139 mmol/L (136-145)
[2023-11-22] MEDS ORDERED: CEFAZOLIN 2 GM VIAL ONE (09:55)
[2023-11-22] MEDS ORDERED: CEFAZOLIN 1 GM VIAL ONE (09:55)
[2023-11-22] MEDS ORDERED: Lidocaine 1% (PF) 30 ML VIAL ONE (09:56)
[2023-11-22] MEDS ORDERED: Gentamicin 80 MG/2 ML VIAL ONE ×2 (09:58→10:05)
[2023-11-22] MEDS ORDERED: Iopamidol 370 76% 100 ML VIAL ONE (10:15)
[2023-11-22] MEDS ORDERED: fentaNYL 50 mcg/mL 1 mL Vial ONE (12:55)
[2023-11-22] MEDS ORDERED: Midazolam HCl 2 mg/2 ml Vial ONE (12:55)
[2023-11-22] MEDS: Amiodarone 200 MG TAB PO SCH ×2 (15:07→21:16)
[2023-11-22] MEDS: Polyethylene Glycol 3350 17 GM Packet PO SCH (15:08)
[2023-11-22] MEDS: Sodium Chloride 0.9% 1,000 ML IV SCH (16:50)
[2023-11-22] MEDS: Metoprolol Tartrate 25 MG TAB PO SCH (21:16)
[2023-11-22] MEDS: Cephalexin 250 MG CAP PO SCH (21:17)
[2023-11-23 05:46] LABS: #Basophils 0.04 10x3/uL (0.0-0.2); %Basophils 0.5 % (0.0-1.0); %Eosinophils 2.5 % (0.0-10.0); %Lymphocytes 11.1 % (21.0-51.0); %Monocytes 8.8 % (0.0-10.0); %Neutrophils 76.6 % (42.0-75.0); Hematocrit 37.5 % (36.0-47.0); Hemoglobin 12.6 g/dL (12.0-16.0); Mean Corpuscular HGB CONC 33.6 g/dL (32.0-36.0); Mean Corpuscular Hemoglobin 30.1 pg (27.0-31.0); Mean Corpuscular Volume 89.5 fL (78.0-98.0); Mean Platelet Volume 10.6 fL (7.4-10.4); Platelet Count 128 10x3/uL (130-400); RBC Distribution Width 12.2 % (11.5-14.5); Red Blood Cell (RBC) Count 4.19 mill/uL (4.20-5.40)
[2023-11-23 06:01] LABS: Anion Gap 12 mmol/L (10-20); BUN (Urea Nitrogen) 13 mg/dL (9.8-20.1); Calc. Creatinine Clearance 73 mL/min (70-130); Calcium 8.4 mg/dL (7.8-10.44); Carbon Dioxide 21 mmol/L (23-31); Chloride 109 mmol/L (98-107); Estimated GFR 74; Glucose 107 mg/dL (83-110); Potassium 4.1 mmol/L (3.5-5.1); Sodium 138 mmol/L (136-145)
[2023-11-23 18:22] LABS: Anion Gap 17 mmol/L (10-20); BUN (Urea Nitrogen) 17 mg/dL (9.8-20.1); Calc. Creatinine Clearance 72 mL/min (70-130); Calcium 9.2 mg/dL (7.8-10.44); Carbon Dioxide 18 mmol/L (23-31); Chloride 106 mmol/L (98-107); Estimated GFR 72; Glucose 153 mg/dL (83-110); Potassium 4.2 mmol/L (3.5-5.1); Sodium 137 mmol/L (136-145)
[2023-11-24 05:24] LABS: #Basophils 0.04 10x3/uL (0.0-0.2); #Eosinphils Less than 0.03 10x3/uL (0.0-0.7); %Basophils 0.3 % (0.0-1.0); %Eosinophils 0.1 % (0.0-10.0); %Lymphocytes 6.2 % (21.0-51.0); %Monocytes 10.5 % (0.0-10.0); %Neutrophils 82.2 % (42.0-75.0); Hemoglobin 12.5 g/dL (12.0-16.0); Mean Corpuscular HGB CONC 33.8 g/dL (32.0-36.0); Mean Corpuscular Hemoglobin 30.3 pg (27.0-31.0); Mean Corpuscular Volume 89.8 fL (78.0-98.0); Mean Platelet Volume 11.1 fL (7.4-10.4); Platelet Count 124 10x3/uL (130-400); RBC Distribution Width 12.4 % (11.5-14.5); Red Blood Cell (RBC) Count 4.12 mill/uL (4.20-5.40)
[2023-11-24 05:39] LABS: Anion Gap 15 mmol/L (10-20); BUN (Urea Nitrogen) 21 mg/dL (9.8-20.1); Calc. Creatinine Clearance 65 mL/min (70-130); Calcium 8.9 mg/dL (7.8-10.44); Carbon Dioxide 20 mmol/L (23-31); Chloride 105 mmol/L (98-107); Estimated GFR 64; Glucose 130 mg/dL (83-110); Potassium 3.8 mmol/L (3.5-5.1); Sodium 136 mmol/L (136-145)
[2023-11-24 08:56] VITALS: BP 124/50; TEMP 98.2
[2023-11-24] MEDS: Rivaroxaban 10 MG TAB PO SCH (09:05)
[2023-12-06] MEDS ORDERED: Amiodarone 200 MG TAB PO SCH (09:00)
[2023-12-20] MEDS ORDERED: Amiodarone 200 MG TAB PO SCH (09:00)
== END 2023-11-24 12:50 | disposition home or self-care (01) | DRG 242 ==
LOC: ERS 13:50 → 2SE 15:50 → OBSVTOIN 11-17 17:23
PROVIDERS: ADMIT Internal Medicine; ATTEND Internal Medicine
PROC: 4A00X4Z Measurement of Central Nervous Electrical Activity, External Approach (ICD-10-PCS; 2023-11-17)
PROC: 0JH606Z Insertion of Pacemaker, Dual Chamber into Chest Subcutaneous Tissue and Fascia, Open Approach (ICD-10-PCS; principal; 2023-11-22)
PROC: 02H63JZ Insertion of Pacemaker Lead into Right Atrium, Percutaneous Approach (ICD-10-PCS; 2023-11-22)
PROC: 02HK3JZ Insertion of Pacemaker Lead into Right Ventricle, Percutaneous Approach (ICD-10-PCS; 2023-11-22)
DX: I49.5 Sick sinus syndrome (principal); G93.41 Metabolic encephalopathy; I47.10 Supraventricular tachycardia, unspecified; I10 Essential (primary) hypertension; E05.00 Thyrotoxicosis with diffuse goiter without thyrotoxic crisis or storm; F03.90 Unspecified dementia, unspecified severity, without behavioral disturbance, psychotic disturbance, mood disturbance, and anxiety; R00.1 Bradycardia, unspecified; I48.0 Paroxysmal atrial fibrillation; E87.6 Hypokalemia; E78.5 Hyperlipidemia, unspecified; E16.2 Hypoglycemia, unspecified; Z79.01 Long term (current) use of anticoagulants; Z79.899 Other long term (current) drug therapy; Z98.51 Tubal ligation status; Z90.49 Acquired absence of other specified parts of digestive tract
CPT/HCPCS: 33208; 33249; 36415; 36416; 70450; 70496; 70498; 70551; 71045; 80048; 80053; 80061; 83605; 83735; 83880; 84443; 84484; 85014; 85018; 85025; 85049; 85610; 85730; 93005; 93010; 93306; 95700; 95711; 95819; 99152; 99153; C1785; C1898; G0378; J0282; J0690; J1580; J1650; J2001; J2250; J3010; J7030; J7070; Q9967